=== PATIENT | male | born 1990 | race Caucasian/White ===

== ENCOUNTER 2022-06-26 08:16 | Emergency (ER) | payer OTHER, SELFPAY ==
[2022-06-26 08:34] VITALS: BP 129/89; PULSE 71; RESP 17; TEMP 36.7; O2SAT 99; BMI 28.1
--- NOTE | 2022-06-26 08:41 | ED.SKABFB ---
HPI - Skin/Abscess/Foreign Bdy General Chief complaint: Skin/Abscess/Foreign Body Stated complaint: Poss infection in injured big toe Time Seen by Provider: 06/26/22 08:33 Source: patient Mode of arrival: Family Vehicle Limitations: no limitations History of Present Illness HPI narrative: Patient is a healthy 31-year-old male who presents with right toe pain. He said he pulled a hangnail on his right toe 3 days ago. He now says it is extremely painful and swollen. No fever or chills. It is mildly erythematous. Related Data Home Medications Medication Instructions Recorded Confirmed naproxen 250 mg tablet 250 mg PO BID PRN pain 06/26/22 06/26/22 Previous Rx's Medication Instructions Recorded cephalexin 500 mg capsule 500 mg PO BID 7 days #14 caps 06/26/22 Allergies Allergy/AdvReac Type Severity Reaction Status Date / Time No Known Drug Allergies Allergy Verified 06/26/22 08:37 Review of Systems Review of Systems Narrative: GENERAL: Denies chills,fever HEENT: Denies throat pain RESPIRATORY: Denies dyspnea, cough, wheezing CARDIOVASCULAR: Denies chest pain, palpitations GASTROINTESTINAL: Denies nausea, vomiting MUSCULOSKELETAL: Denies extremity pain, injury SKIN: See HPI NEUROLOGIC: Denies weakness, dizziness, headache, numbness 8 point review of systems is negative except for those stated above and HPI Patient History Social History Smoking Status: Former smoker Smoking Status: Former smoker tobacco type: cigarettes alcohol intake frequency: 0-2 drinks per day Substance Use Type: does not use Exam Initial Vital Signs Initial Vital Signs: Vital Signs Temperature 98.1 F 06/26/22 08:34 Pulse Rate 71 06/26/22 08:34 Respiratory Rate 17 06/26/22 08:34 Blood Pressure 129/89 06/26/22 08:34 Pulse Oximetry 99 06/26/22 08:34 Oxygen Delivery Method 06/26/22 08:34 GENERAL: Well-appearing, well-nourished and in no acute distress. CARDIOVASCULAR: peripheral pulses in tact, cap refill <2 sec RESPIRATORY: No respiratory distress, speaks in full sentences without difficulty EXTREMITIES: Normal range of motion, no clubbing or edema. Neurovascularly intact NEUROLOGICAL: Cranial nerves II through XII grossly intact. Normal gait and speech. SKIN: Right big toe medial site of hangnail removal. Very tender to touch minimal erythema no obvious swelling Course Vital Signs Vital signs: Vital Signs - 8 hr 06/26/ 08:34 Temperature 98.1 F Pulse Rate 71 Respiratory Rate 17 Blood Pressure 129/89 Pulse Oximetry 99 Oxygen Delivery Method Room Air MDM - Skin/Abscess/Foreign Bdy MDM Narrative Medical decision making narrative: The patient till really does not look severely infected it is minimally erythematous localized around the nail. Commended warm soaks however he is extremely tender to touch. This time there is nothing to drain or removed. Discharge Plan Departure Patient Disposition: Home Clinical Impression: Paronychia of great toe of right foot Instructions: Paronychia Activity Restrictions/Additional Instructions: *You have been diagnosed with right big toe paronychia *What to do: This time I recommend a warm soak 10 minutes daily and then be sure to let it dry out. Continue to apply antibiotic ointment 1-2 times daily *Continue to take medications as directed Keflex 500 mg twice a day for 7 days Naproxen 500 mg every 12 hours *Follow up with your primary care provider in 2-3 days or call [phone] *Return to ER if you should have increasing redness pain swelling or any new, worsening or concerning symptoms Prescriptions: New cephalexin 500 mg capsule 500 mg PO BID 7 Days Qty: 14 0RF No Action naproxen [Naprosyn] 250 mg Tablet 250 mg PO BID PRN (Reason: pain) Referrals: ProviderDelvin [Primary Care Provider] - Visit Report Forms: Patient Portal/API
== END 2022-06-26 09:07 | disposition home or self-care (01) ==
PROVIDERS: Emergency Provider Emergency Medicine
DX: L03.031 Cellulitis of right toe (principal)
CPT/HCPCS: 99281

== ENCOUNTER 2022-09-20 15:42 | Emergency (ER) | payer OTHER, SELFPAY ==
[2022-09-20 16:06] VITALS: BP 135/94; PULSE 114; RESP 18; TEMP 37.9; O2SAT 98; BMI 29.0
--- NOTE | 2022-09-20 17:32 | ED_ITS ---
HPI - Fever <CYNDY Casillas - Last Filed: 09/20/22 18:56> General Chief Complaint: Fever Stated Complaint: body aches, headache, s-throat, fever Time Seen by Provider: 09/20/22 16:26 Source: patient Mode of arrival: Ambulatory History of Present Illness HPI Narrative: This is a 31-year-old male who presents to the emergency department after upper respiratory illness symptoms earlier in the week and states that he got better and felt great yesterday when this morning he woke up and felt horrible, states he is had a fever, chills, sore throat, and has had a headache all day. He denies any recent exposures to known sick people. He has been at home with his child who was sick last week upper respiratory infection. Patient states that his child is better and he thought he was better but today he has significant body aches and feels worsen ever. He denies vomiting, diarrhea, weakness. He denies dysuria, urinary frequency or urgency. Related Data Home Medications Medication Instructions Recorded Confirmed naproxen 250 mg tablet 250 mg PO BID PRN pain 06/26/22 06/26/22 Previous Rx's Medication Instructions Recorded cetirizine 10 mg tablet 20 mg PO BEDTIME PRN congestion 09/20/22 #30 tabs fluticasone propionate 50 2 spray intranasal DAILY PRN nasal 09/20/22 mcg/actuation nasal congestion #16 grams spray,suspension ketorolac 10 mg tablet 10 mg PO Q8H PRN pain/muscle 09/20/22 aches/fever #20 tabs pseudoephedrine HCl 120 mg 120 mg PO Q12H PRN nasal 09/20/22 tablet,extended release (Sudafed congestion #14 tabs 12 Hour) Allergies Allergy/AdvReac Type Severity Reaction Status Date / Time No Known Drug Allergies Allergy Verified 06/26/22 08:37 Review of Systems <CYNDY Casillas - Last Filed: 09/20/22 18:56> Review of Systems Narrative: Review of systems is negative for acute abnormalities unless otherwise noted in HPI Patient History <CYNDY Casillas - Last Filed: 09/20/22 18:56> Social History Smoking Status: Former smoker Smoking Status: Former smoker tobacco type: cigarettes alcohol intake frequency: 0-2 drinks per day Substance Use Type: does not use Exam <CYNDY Casillas - Last Filed: 09/20/22 18:56> Narrative Exam Narrative: Reviewed vitals signs and nursing notes. General: cooperative, comfortable, in no acute distress, well groomed, wearing a long sleeve and hooded jacket, febrile, nontoxic appearing HEENT: symmetrical facial expressions, moist mucous membranes, nasal congestion, hoarse voice, Cardiovascular: Tachycardic rate and regular rhythm, S1-S2 without murmur no peripheral edema, warm extremities Respiratory: Normal effort, able to speak in complete sentences, without wheezing, stridor, or abnormal breath sounds. No retractions or tachypnea. Without abnormal breath sounds posteriorlyl GI: abdomen soft, nontender to palpation, nondistended, without masses, rebound tenderness or exquisite tenderness with exam. MSK: moves all extremities, neurovascularly intact, no weakness, normal tone Skin: brisk capillary refill, without pallor or erythema Neuro: normal speech and cognition, A&O x3, ambulatory, clear speech Psych: mental status is grossly normal, congruent mood, normal affect, pleasant and cooperative Initial Vital Signs Initial Vital Signs: Vital Signs Temperature 100.2 F H 09/20/22 16:06 Pulse Rate 114 H 09/20/22 16:06 Respiratory Rate 18 09/20/22 16:06 Blood Pressure 135/94 H 09/20/22 16:06 Pulse Oximetry 98 09/20/22 16:06 Oxygen Delivery Method 09/20/22 16:06 <Corazon Neely MD - Last Filed: 09/21/22 08:19> Initial Vital Signs Initial Vital Signs: Vital Signs Temperature 100.2 F H 09/20/22 16:06 Pulse Rate 114 H 09/20/22 16:06 Respiratory Rate 18 09/20/22 16:06 Blood Pressure 135/94 H 09/20/22 16:06 Pulse Oximetry 98 09/20/22 16:06 Oxygen Delivery Method 09/20/22 16:06 Course <CYNDY Casillas - Last Filed: 09/20/22 18:56> Orders Ordered: Discontinued Medications Acetaminophen (Acetaminophen 325 Mg Tablet) 975 mg PO NOW ONE Stop: 09/20/22 17:09 Last Admin: 09/20/22 18:15 Dose: 975 mg Documented By: KALPESH Ketorolac Tromethamine (Ketorolac 30 Mg/Ml Vial) 15 mg IM NOW ONE Stop: 09/20/22 17:09 Last Admin: 09/20/22 18:15 Dose: 15 mg Documented By: KALPESH Vital Signs Vital signs: Vital Signs - 8 hr 09/20/22 16:06 09/20/22 18:30 Temperature 100.2 F H Pulse Rate 114 H 90 Respiratory Rate 18 18 Blood Pressure 135/94 H 137/96 H Pulse Oximetry 98 99 Oxygen Delivery Method Room Air Room Air <Corazon Neely MD - Last Filed: 09/21/22 08:19> Orders Ordered: Discontinued Medications Acetaminophen (Acetaminophen 325 Mg Tablet) 975 mg PO NOW ONE Stop: 09/20/22 17:09 Last Admin: 09/20/22 18:15 Dose: 975 mg Documented By: KALPESH Ketorolac Tromethamine (Ketorolac 30 Mg/Ml Vial) 15 mg IM NOW ONE Stop: 09/20/22 17:09 Last Admin: 09/20/22 18:15 Dose: 15 mg Documented By: KALPESH Vital Signs Vital signs: Vital Signs - 8 hr 09/20/22 16:06 09/20/22 18:30 Temperature 100.2 F H Pulse Rate 114 H 90 Respiratory Rate 18 18 Blood Pressure 135/94 H 137/96 H Pulse Oximetry 98 99 Oxygen Delivery Method Room Air Room Air MDM - Fever <CYNDY Casillas - Last Filed: 09/20/22 18:56> Lab Data Labs: Lab Results 09/20/22 Range/Units 16:14 SARS-CoV-2 (PCR) Negative (Negative) Influenza A (RT-PCR) Flu a negative (NEGATIVE) Influenza B (RT-PCR) Flu b negative (NEGATIVE) RSV (PCR) Negative (Negative) MDM Narrative Medical decision making narrative: This is a 31-year-old male who presents to the emergency department with onset of fever, sore throat, muscle aches, headache and congestion which started this morning. Patient states that his son had a upper respiratory infection last week but everybody in the home had gotten better, patient states that he felt great yesterday and this morning with like a truck hit him. His COVID, influenza, and RSV PCR was negative for all. Pt was given ibuprofen and Tylenol in the emergency department, encouraged hydration, patient tolerated well and felt much better after his fever broke. He patient's strict return precautions, this is most likely an upper respiratory viral infection, he does have conjunctival injections bilaterally, this looks most like influenza or COVID from my assessment. Encouraged him to retest for COVID tomorrow and the next day at home. He understands to treat his symptoms with [id number] m edications including Zyrtec, ibuprofen, Flonase, Tylenol, and Sudafed as needed for congestion. He does not have any medical history, is a nonsmoker. He was given strict return precautions, is without vomiting, diarrhea, or other symptom. Presentation suggestive of viral syndrome/URI without evidence of hypoxia, respiratory distress, dehydration, or focal exam to suggest secondary bacterial infection. COVID negative. Discussed supportive treatments: Tylenol/Motrin as needed for pain/fever. OTC decongestant medications and/or antihistamines for symptomatic relief. Maintain adequate fluid intake. Follow- up with PCP as directed. Return to clinic/ER instructions discussed for new, not improving, or worsening symptoms. All questions answered. <Corazon Neely MD - Last Filed: 09/21/22 08:19> Lab Data Labs: Lab Results 09/20/22 Range/Units 16:14 SARS-CoV-2 (PCR) Negative (Negative) Influenza A (RT-PCR) Flu a negative (NEGATIVE) Influenza B (RT-PCR) Flu b negative (NEGATIVE) RSV (PCR) Negative (Negative) Discharge Plan Departure Patient Disposition: Home Clinical Impression: Fever of unknown origin, Upper respiratory infection, viral Instructions: DI for Viral Upper Respiratory Infection -- Adult, COVID-19 Activity Restrictions/Additional Instructions: *You have been diagnosed with most likely this is influenza or COVID causing your symptoms, you might not test positive today since day 1 of your symptoms, any enough of a viral load coming out of your nose. You had a fever, an elevated heart rate, muscle aches and all of the signs. Please stay hydrated like it is your job, drink plenty of fluids for the next few days, rest as much as you need it, take the medications that I prescribed to help treat your symptoms, take Tylenol in addition to the ketorolac for fever and pain. I hope that you start feeling better soon, return for any worsening, Patient is appropriate and amenable to discharge home. Vital signs are stable on repeat examination is unremarkable. Patient has been informed of results. Patient has been given strict return to ER precautions for any new or worsening symptoms. Patient understands to follow up closely with outpatient providers as instructed. Patient understands plan and agrees to discharge home. All questions and concerns answered at this time. *What to do: *Please continue to take your regular medications as directed. [x ] New medication prescriptions sent to your pharmacy: [[facility] ] [ ] New medication written as a paper prescription [ ] No new medications given *Please follow up with your primary care provider in 2-3 days, call for an appointment. Let them know you were seen in the Emergency Department and that we asked that you be seen for follow-up. We will electronically transmit a record of today's note if your PCP is in our system *If you do not have a primary care provider please contact [phone] to establish care with one of [facility] primary care providers. *Return to Emergency Department if you should have any new, worsening, or concerning symptoms, such as [fever greater than 101F, chills, worsening pain, persistent vomiting or other bothersome symptoms]. Prescriptions: New ketorolac 10 mg tablet 10 mg PO Q8H PRN (Reason: pain/muscle aches/fever) Qty: 20 0RF cetirizine 10 mg tablet 20 mg PO BEDTIME PRN (Reason: congestion) Qty: 30 0RF pseudoephedrine HCl [Sudafed 12 Hour] 120 mg tablet extended release 120 mg PO Q12H PRN (Reason: nasal congestion) Qty: 14 0RF fluticasone propionate 50 mcg/actuation spray,suspension 2 spray intranasal DAILY PRN (Reason: nasal congestion) Qty: 16 0RF Rx Instructions: administer into each nostril No Action naproxen [Naprosyn] 250 mg Tablet 250 mg PO BID PRN (Reason: pain) Referrals: Provider,Delvin YOO [Primary Care Provider] - Visit Report Forms: Patient Portal/API <Corazon Neely MD - Last Filed: 09/21/22 08:19> Cosign ED Attending Cosignature Attestation: I was immediately available in the department for consultation throughout this patient's visit. I agree with documentation as above. Corazon Neely MD
[2022-09-20 17:53] LABS: Influenza A - CEPHEID Flu A NEGATIVE (NEGATIVE); Influenza B - CEPHEID Flu B NEGATIVE (NEGATIVE); Respiratory Syncytial Virus Negative (Negative)
[2022-09-20 17:56] LABS: COVID-19 CEPHEID 4-PLEX PCR Negative (Negative)
[2022-09-20] MEDS: ACETAMINOPHEN 325 MG TABLET 975 MG PO (18:15)
[2022-09-20] MEDS: KETOROLAC 30 MG/ML VIAL 15 MG IM (18:15)
[2022-09-20 18:30] VITALS: BP 137/96; PULSE 90; RESP 18; O2SAT 99
== END 2022-09-20 18:36 | disposition home or self-care (01) ==
PROVIDERS: Emergency Medicine; Emergency Provider Nurse Practitioner Critical Care Medicine
DX: J06.9 Acute upper respiratory infection, unspecified (principal); R50.9 Fever, unspecified; Z20.822 Contact with and (suspected) exposure to COVID-19
CPT/HCPCS: 0241U; 96372; 99283; J1885

== ENCOUNTER 2023-06-17 06:59 | Emergency (ER) | payer OTHER, SELFPAY ==
[2023-06-17 07:05] VITALS: BP 137/95; PULSE 75; RESP 16; TEMP 36.8; O2SAT 100; BMI 29.2
--- NOTE | 2023-06-17 07:23 | ED_ITS ---
HPI - Eye Problem General Chief complaint: Eye Problems Stated complaint: conjunctivitus in left eye Time Seen by Provider: 06/17/23 07:18 Source: patient Mode of arrival: Ambulatory Limitations: no limitations History of Present Illness HPI Narrative: This is a 32-year-old male with history of Lasix in 2019 with concern for conjunctivitis in the left eye. Patient states he developed irritation a week ago (last Friday), crusting and drainage. He states he was started on polymyxin eyedrops which he did bring with him he has been using them for the past 6 days. Patient states he has been using the eyedrops and has not really had any improvement. He states this morning he woke up his pain was little bit increased. He states no change to vision. He states his eyes have been crusted shut every morning on the left. He states his right eye has not been very involved. Patient states he does have a young child at home which could be a potential source. He has not had issues like this in the past. He does not wear contacts or glasses. Patient denies fevers, no nasal congestion or other symptoms. Patient was seen at an urgent care on [facility] and has not had any improvement. He notes Lasix to his eye no other prior surgeries. Former tobacco user, occasional alcohol, no illicit. Related Data Home Medications Medication Instructions Recorded Confirmed naproxen 250 mg tablet 250 mg PO BID PRN pain 06/26/22 06/26/22 Previous Rx's Medication Instructions Recorded cetirizine 10 mg tablet 20 mg PO BEDTIME PRN congestion 09/20/22 #30 tabs fluticasone propionate 50 2 spray intranasal DAILY PRN nasal 09/20/22 mcg/actuation nasal congestion #16 grams spray,suspension ketorolac 10 mg tablet 10 mg PO Q8H PRN pain/muscle 09/20/22 aches/fever #20 tabs pseudoephedrine HCl 120 mg 120 mg PO Q12H PRN nasal 09/20/22 tablet,extended release (Sudafed congestion #14 tabs 12 Hour) Allergies Allergy/AdvReac Type Severity Reaction Status Date / Time No Known Drug Allergies Allergy Verified 06/26/22 08:37 Review of Systems Review of Systems ROS Unobtainable: All systems reviewed & are unremarkable except as noted in HPI and below Patient History Social History Smoking Status: Former smoker Smoking Status: Former smoker tobacco type: cigarettes alcohol intake frequency: 0-2 drinks per day Substance Use Type: does not use Exam Narrative Exam Narrative: GEN: well nourished, well appearing male, alert and oriented x 3, patient appears to be in mild distress. HEENT: Atraumatic, pupils are equal round reactive to light, extraocular movements are intact, nares are clear, TMs are clear with no fluid, there is no conjunctival pallor. Throat is clear without any exudates, erythema, tonsillar enlargement or uvular deviation Visual acuity: right [20/25], left [20/25] without correction. IOP: Right [default value] mm Hg, Left [default value] mm Hg General: no globe trauma Eyelids: normal inspection on the right, eyelids everted for exam on left, no foreign body, patient has some slight swelling of the upper lids but no significant edema. Mild erythema along the edge of the lid particularly in the upper lid on the left. Conjunctiva/Sclera: normal inspection the right, on the left patient has injection of the conjunctiva particularly the lower lid but upper and lower included some mild injection of the sclera on the left. Corneas: normal inspection, examined with fluroscein on left, patient has punctate uptake throughout the sclera, no uptake over the cornea itself, no abrasions, no lacerations or ulcerations are appreciated.. EOM: intact, no palsy/entrapment Pupils: PERRL, normal accomadation, pupil normal Anterior Chambers: normal inspection, no hypema Posterior: normal fundoscopic on bilaterally HEART: Regular rate and rhythm without murmur, clicks, rubs. LUNGS:Lungs clear to auscultation, no wheezes, rales, crackles, chest moves symmetrically MSCL: full range of motion, normal gait NEURO:CN 2-12 intact, sensation normal SKIN: No rash, erythema or other skin changes other than noted above Initial Vital Signs Initial Vital Signs: Vital Signs Temperature 98.3 F 06/17/23 07:05 Pulse Rate 75 06/17/23 07:05 Respiratory Rate 16 06/17/23 07:05 Blood Pressure 137/95 H 06/17/23 07:05 Pulse Oximetry 100 06/17/23 07:05 Oxygen Delivery Method Room Air 06/17/23 07:05 Course Orders Ordered: Discontinued Medications Fluorescein Sodium (Fluorescein 1 Mg Strip) 1 mg EYE-BOTH NOW ONE Stop: 06/17/23 07:20 Last Admin: 06/17/23 07:45 Dose: 1 mg Documented By: ESTEFANY Ofloxacin (Ofloxacin 0.3% Ophth Prepack) 1 bottle MISC SEEINSTR ONE Stop: 06/17/23 07:37 Last Admin: 06/17/23 08:17 Dose: 2 drops Documented By: ESTEFANY Proparacaine HCl (Proparacaine 0.5% Ophth Shannon) 1 drops EYE-BOTH NOW ONE Stop: 06/17/23 07:20 Last Admin: 06/17/23 07:45 Dose: 1 drop Documented By: ESTEFANY Vital Signs Vital signs: Vital Signs - 8 hr 06/17/23 07:05 Temperature 98.3 F Pulse Rate 75 Respiratory Rate 16 Blood Pressure 137/95 H Pulse Oximetry 100 Oxygen Delivery Method Room Air MDM - Eye Problem MDM Narrative Medical decision making narrative: 32-year-old healthy male with a history of Lasix with new prior issues with infections. Patient was diagnosed with a bacterial conjunctivitis started on polymyxin approximately 6 days ago without any improvement some slight worsening. Patient states no changes to vision the eye is more uncomfortable today. He states persistent crusting throughout has been localized to the left eye. On examination no obvious foreign body, no obvious abrasions or ulcerations are appreciated. Patient has some punctate uptake over the sclera but not over the cornea itself. Patient antibiotic drops were change to ofloxacin and patient referred to see Ophthalmology today or tomorrow at the [facility]. Patient has also been using a homeopathic eyedrops who is main ingredient is benzakalium. Discussed with patient would stop this for the short term there maybe some reactivity with this medication as well to see if that improves. If he needed to he can use some saline drops [id number]. Discharge Plan Departure Patient Disposition: Home Clinical Impression: Conjunctivitis Instructions: DI for Conjunctivitis Activity Restrictions/Additional Instructions: Follow-up with ophthalmology in the next 24 hours. Call their office 1st thing this morning to set up an appointment. Stop using polymyxin antibiotic drops. You may use ofloxacin 2 drops to the left eye every 6 hours. You may continue to use cool washcloth to the affected side throughout the day. You can take a 1000 mg of Tylenol and/or 600 mg of ibuprofen every 6 hours as needed for pain. Please return for sudden changes in vision, rapidly worsening swelling redness or drainage, increasing pain, vomiting, fevers or other new or concerning changes. Prescriptions: No Action naproxen [Naprosyn] 250 mg Tablet 250 mg PO BID PRN (Reason: pain) ketorolac 10 mg tablet 10 mg PO Q8H PRN (Reason: pain/muscle aches/fever) Qty: 20 0RF cetirizine 10 mg tablet 20 mg PO BEDTIME PRN (Reason: congestion) Qty: 30 0RF pseudoephedrine HCl [Sudafed 12 Hour] 120 mg tablet extended release 120 mg PO Q12H PRN (Reason: nasal congestion) Qty: 14 0RF fluticasone propionate 50 mcg/actuation spray,suspension 2 spray intranasal DAILY PRN (Reason: nasal congestion) Qty: 16 0RF Rx Instructions: administer into each nostril Referrals: Fransisco Celis MD [Physician] - Provider,Delvin YOO [Primary Care Provider] - Stand Alone Forms: Patient Portal/API, Work Release Note
[2023-06-17] MEDS: FLUORESCEIN 1 MG STRIP EYE-BOTH (07:45)
[2023-06-17] MEDS: PROPARACAINE 0.5% OPHTH SOL 1 DROPS EYE-BOTH (07:45)
[2023-06-17] MEDS: OFLOXACIN 0.3% OPHTH PREPACK 1 BOTTLE MISC (08:17)
== END 2023-06-17 08:24 | disposition home or self-care (01) ==
PROVIDERS: Emergency Provider Emergency Medicine
DX: H10.9 Unspecified conjunctivitis (principal)
CPT/HCPCS: 99282; 99283

== ENCOUNTER 2023-06-29 19:31 | Emergency (ER) | payer OTHER, SELFPAY ==
--- NOTE | 2023-06-29 19:37 | ED.GENADULT ---
HPI - General Adult General Chief complaint: Extremity Injury, Lower Stated complaint: Left great toe injury Time Seen by Provider: 06/29/23 19:36 History of Present Illness HPI narrative: 32-year-old male former smoker with noncontributory medical history presents with a chief complaint of an injury to his left great toe earlier today. He was moving a heavy post and dropped it on his foot with primary point of impact being his great toe. He has a small amount of bleeding coming from underneath the nail. He has significant aching pain while at rest and sharp pain when ambulating. He denies other injury and is otherwise well and free of complaint. His tetanus is up-to-date. Related Data Home Medications Medication Instructions Recorded Confirmed naproxen 250 mg tablet 250 mg PO BID PRN pain 06/26/22 06/26/22 Previous Rx's Medication Instructions Recorded cetirizine 10 mg tablet 20 mg PO BEDTIME PRN congestion 09/20/22 #30 tabs fluticasone propionate 50 2 spray intranasal DAILY PRN nasal 09/20/22 mcg/actuation nasal congestion #16 grams spray,suspension ketorolac 10 mg tablet 10 mg PO Q8H PRN pain/muscle 09/20/22 aches/fever #20 tabs pseudoephedrine HCl 120 mg 120 mg PO Q12H PRN nasal 09/20/22 tablet,extended release (Sudafed congestion #14 tabs 12 Hour) Allergies Allergy/AdvReac Type Severity Reaction Status Date / Time No Known Drug Allergies Allergy Verified 06/26/22 08:37 Review of Systems Review of Systems Narrative: GENERAL: Denies chills, fatigue, malaise, fever, sweats. HEENT: Denies sinus pain, ear pain, sore throat, difficulty swallowing, dizziness. RESPIRATORY: Denies dyspnea, cough, wheezing, hemoptysis, sputum. CARDIOVASCULAR: Denies chest pain, palpitations, orthopnea, edema, GASTROINTESTINAL: Denies nausea, vomiting, abdominal pain, diarrhea, constipation, melena. : Denies dysuria, frequency, incontinence, hematuria, urinary retention. MUSCULOSKELETAL: See HPI SKIN: Denies rash, skin lesions, or other NEUROLOGIC: Denies weakness, headache, numbness, change in speech, confusion, seizures, incoordination. PSYCHIATRIC: No concerning psychosocial issues. 12 point review of systems is negative except for those stated above Patient History Social History Smoking Status: Former smoker Smoking Status: Former smoker tobacco type: cigarettes alcohol intake frequency: 0-2 drinks per day Substance Use Type: does not use Exam Narrative Exam Narrative: GEN: AOx3 and in mild distress EYES: Pupils are equal, round, and reactive to light and accommodation. Extraoccular muscles are intact bilaterally. There is no subconjunctival hemorrhage or exudate. CHEST: Lungs are clear to auscultation bilaterally and free of wheezes, rales, or rhonchi. Heart rate is regular rhythm, there are no murmurs, clicks, rubs, or gallops. There is no chest wall tenderness. ABD: Abdomen is soft and nontender. There is no guarding or rebound. Bowel sounds are normal in all 4 quadrants. There is no mass or organomegaly. EXT: Decreased range of motion of left great toe secondary to pain, nail and nail fold are intact, small amount of bleeding coming from the medial edge of the nail suggesting a small nail bed injury. This is otherwise closed, isolated and neurovascularly intact. SKIN: Warm, pink, and dry. No erythema or rash Initial Vital Signs Initial Vital Signs: Vital Signs Temperature 97.5 F L 06/29/23 19:46 Pulse Rate 88 06/29/23 19:46 Respiratory Rate 16 06/29/23 19:46 Blood Pressure 149/84 H 06/29/23 19:46 Pulse Oximetry 99 06/29/23 19:46 Oxygen Delivery Method Room Air 06/29/23 19:46 Course Orders Ordered: ED Orders 06/29/23 19:53 XR foot LT min 3V Stat Discontinued Medications Hydrocodone Bitart/Acetaminophen (Hydrocodone/Acet 5/325 Prepack) 1 bottle MISC SEEINSTR ONE Stop: 06/29/23 19:58 Last Admin: 06/29/23 20:13 Dose: 1 bottle Documented By: BS Vital Signs Vital signs: Vital Signs - 8 hr 06/29/23 20:43 Pulse Rate 88 Respiratory Rate 16 Blood Pressure 135/80 Pulse Oximetry 99 Oxygen Delivery Method Room Air Medical Decision Making [facility] Narrative Medical decision making narrative: [32] year old patient presents with crush injury to left great toe Multiple etiologies for patient's symptoms considered including, but not limited to: Fracture versus dislocation versus ligamentous injury versus nail bed injury versus other [] Prior Charts reviewed in our EMR Primary Historian: patient Imaging reviewed: Left foot x-ray demonstrates no fracture or dislocation History and physical exam are reassuring, this is closed, isolated and neurovascularly intact, there is minimal bleeding from the nail bed, no evidence of subungual hematoma, no evidence of open fracture. Patient's symptoms improved over duration of stay with above-stated therapies. Findings and discharge diagnosis discussed with patient/family followed by verbalization of understanding Return precautions discussed with patient/family whom verbalize understanding of diagnosis and plan Discharge Plan Departure Patient Disposition: Home Clinical Impression: Crushing injury of great toe Instructions: Toe Fracture Activity Restrictions/Additional Instructions: *You have been diagnosed with [crush injury of left great toe with minor nail bed injury. As we discussed the x-rays are negative for fracture or dislocation. I gave you printed information on toe fracture just for completeness sake, just to be clear there is no evidence that your toe is actually fractured.] *What to do: *Please continue to take your regular medications as directed. [ ] New medication prescriptions sent to your pharmacy: [ ] [ ] New medication written as a paper prescription [ ] No new medications given *Please follow up with your primary care provider in 2-3 days, call for an appointment. Let them know you were seen in the Emergency Department and that we ask that you be seen in follow up. We will electronically transmit a record of today's note if your PCP is in our system *Return to Emergency Department if you should have any new, worsening or concerning symptoms, such as [fever greater than 101 F, shaking chills, worsening pain, persistent vomiting or other bothersome symptoms] Prescriptions: No Action naproxen [Naprosyn] 250 mg Tablet 250 mg PO BID PRN (Reason: pain) ketorolac 10 mg tablet 10 mg PO Q8H PRN (Reason: pain/muscle aches/fever) Qty: 20 0RF cetirizine 10 mg tablet 20 mg PO BEDTIME PRN (Reason: congestion) Qty: 30 0RF pseudoephedrine HCl [Sudafed 12 Hour] 120 mg tablet extended release 120 mg PO Q12H PRN (Reason: nasal congestion) Qty: 14 0RF fluticasone propionate 50 mcg/actuation spray,suspension 2 spray intranasal DAILY PRN (Reason: nasal congestion) Qty: 16 0RF Rx Instructions: administer into each nostril Referrals: ProviderDelvin FREDO [Primary Care Provider] - Stand Alone Forms: Patient Portal/API
[2023-06-29 19:46] VITALS: BP 149/84; PULSE 88; RESP 16; TEMP 36.4; O2SAT 99; BMI 28.7
--- NOTE | 2023-06-29 19:53 | DI.RAD.S_ITS ---
PROCEDURE: XR FOOT LT MIN 3V INDICATIONS: Crush injury to RT great toe TECHNIQUE: 3 views of the foot were acquired. COMPARISON: None. FINDINGS: Bones: No acute fractures or dislocations. A nonaggressive lucent lesion is seen within body of the calcaneus, most likely a benign bone cyst or intraosseous lipoma. Soft tissues: No suspicious soft tissue calcification. IMPRESSION: No acute osseous abnormality. If clinical suspicion and/or symptoms persist, additional imaging with repeat plain films, or advanced imaging (e.g. CT, MRI) may be helpful for further assessment. Approved by: Darshan Barrientos M.D. on 06/29/2023 at 20:23
[2023-06-29] MEDS: HYDROCODONE/ACET 5/325 PREPACK 1 BOTTLE MISC (20:13)
[2023-06-29 20:43] VITALS: BP 135/80; PULSE 88; RESP 16; O2SAT 99
== END 2023-06-29 20:44 | disposition home or self-care (01) ==
PROVIDERS: Emergency Provider Emergency Medicine
DX: S97.112A Crushing injury of left great toe, initial encounter (principal); W22.8XXA Striking against or struck by other objects, initial encounter
CPT/HCPCS: 73630; 99283

== ENCOUNTER 2023-12-07 11:57 | Emergency (ER) | payer OTHER, SELFPAY ==
[2023-12-07] VITALS (29 sets, daily range): BP systolic 102–128; BP diastolic 56–84; PULSE 47–81; RESP 9–29; O2SAT 97–100
--- NOTE | 2023-12-07 12:00 | DI.RAD.S_ITS ---
PROCEDURE: XR CHEST 1V INDICATIONS: Short of breath and L sided chest pain TECHNIQUE: One view of the chest was acquired. COMPARISON: [facility], CT, CT CHEST WO [facility], 12/07/2023, 12:13. FINDINGS: Surgical changes and devices: None. Lungs and pleura: An incomplete inspiratory result is noted, causing a crowded appearance to the lung markings. No focal infiltrates are seen. No pneumothorax or significant pleural effusions are seen. Mediastinum: Mediastinal contours appear normal. Heart size is normal. Bones and chest wall: No suspicious bony lesions. The known left-sided rib fractures are not seen on this plain film study. Overlying soft tissues appear unremarkable. IMPRESSION: Low lung volumes, without an acute abnormality seen by plain film. The known left-sided rib fractures that can be seen on the accompanying CT study are not seen by plain film study. Dictated by: Pablo Corona M.D. on 12/07/2023 at 11:42 Approved by: Pablo Corona M.D. on 12/07/2023 at 11:42
--- NOTE | 2023-12-07 12:02 | ED_ITS ---
HPI - General Adult General Chief complaint: Trauma Stated complaint: Mod Trauma Time Seen by Provider: 12/07/23 12:00 Source: patient and EMS Mode of arrival: EMS Limitations: no limitations History of Present Illness HPI narrative: Patient is a 33-year-old male who is brought in by EMS not on a backboard not in a cervical collar for injuries that he sustained when he fell while working in his garage. He states he fell approximately 3 ft. He did land on his left side. Has fairly significant left-sided chest wall discomfort. He states he can feel things moving around when he takes a deep breath. No extremity injuries. Did not hit his head. No neck pain. Not on blood thinners. No pelvic pain. Initial reports by EMS was that the patient was hypotensive with a systolic blood pressure in the 80s and was bradycardic with a heart rate in the 50s Related Data Previous Rx's Medication Instructions Recorded hydrocodone 5 mg-acetaminophen 325 1 tab PO Q4-6H PRN pain #20 tabs 12/07/23 mg tablet Allergies Allergy/AdvReac Type Severity Reaction Status Date / Time No Known Drug Allergies Allergy Verified 06/26/22 08:37 Review of Systems Review of Systems ROS Unobtainable: All systems reviewed & are unremarkable except as noted in HPI and below Patient History Social History Smoking Status: Former smoker Smoking Status: Former smoker tobacco type: cigarettes alcohol intake frequency: 0-2 drinks per day Substance Use Type: does not use Exam Initial Vital Signs Initial Vital Signs: Vital Signs Pulse Rate 56 L 12/07/23 11:58 Respiratory Rate 14 12/07/23 11:58 Blood Pressure 103/68 12/07/23 11:58 Pulse Oximetry 100 12/07/23 11:58 Const General: cooperative, comfortable and No ill appearing HENMT Head: normal to inspection and normocephalic Chest Chest: No crepitus and tenderness (Left-sided lateral posterior chest) Resp Effort & Inspection: normal respiratory effort Auscultation: clear to auscultation bilaterally Cardio Rate: regular rate Rhythm: regular rhythm GI Inspection: normal to inspection and non-distended Back/Spine/Pelvis Cervical Spine: No cervical spinal tenderness Thoracic/Lumbar Spine: No thoracic spinal tenderness and No lumbar spinal tenderness Skin General: no rashes or lesions noted Neuro General: patient alert, patient awake, patient oriented x3 and moves all extremities Speech: speech normal Extrem General: normal to inspection and capillary refill normal Procedures FAST Exam FAST Exam 1: Fluid in Morison's pouch: No Fluid in Splenorenal Junction: No Fluid around bladder, Transverse view: No Fluid around bladder, Sagittal view: No Fluid in Pericardial Sac: No Gross Wall Motion Abnormality: No Study normal for this patient: Yes Images saved for further review: No Additional Comments: Clear lung sliding bilateral thorax Scores GCS [place] coma scale eye opening: Spontaneous [place] coma scale verbal response: Orientated [place] coma scale motor response: Obey commands [place] coma scale total score: 15 Nexus Score for C-Spine Focal Neurologic deficit present: No Midline spinal tenderness present: No Altered level of conciousness present: No Intoxication present: No Distracting Injury Present: No Nexus Criteria for C-spine: 0 Course Orders Ordered: ED Orders 12/07/23 12:00 XR chest 1V Stat Complete Blood Count AUTO DIFF Stat Comprehensive Metabolic Panel Stat Lipase Stat Troponin & CK Cardiac Panel Stat 12/07/23 12:03 CT chest wo con Stat 12/07/23 12:04 EKG-12 Lead Stat Discontinued Medications Hydrocodone Bitart/Acetaminophen (Hydrocodone/Acet 5/325 Tablet) 1 tab PO NOW ONE Stop: 12/07/23 13:00 Last Admin: 12/07/23 13:32 Dose: 1 tab Documented By: CTS Hydromorphone HCl (Hydromorphone 0.5 Mg Inj) 0.5 mg IV NOW ONE Stop: 12/07/23 12:22 Last Admin: 12/07/23 12:26 Dose: 0.5 mg Documented By: MENG Ketorolac Tromethamine (Ketorolac 30 Mg/Ml Vial) 30 mg IV NOW ONE Stop: 12/07/23 13:00 Last Admin: 12/07/23 13:31 Dose: 30 mg Documented By: CTS Vital Signs Vital signs: Vital Signs - 8 hr 12/07/23 11:58 12/07/23 11:59 12/07/23 12:02 Pulse Rate 56 L 59 L Respiratory Rate 14 20 Blood Pressure 103/68 102/70 Pulse Oximetry 100 100 Oxygen Delivery Method Room Air Room Air 12/07/23 12:11 12/07/23 12:12 12/07/23 12:12 Pulse Rate 55 L 54 L Respiratory Rate 16 Blood Pressure 104/73 Pulse Oximetry 100 Oxygen Delivery Method 12/07/23 12:15 12/07/23 12:20 12/07/23 12:20 Pulse Rate 47 L 54 L Respiratory Rate 9 L 24 Blood Pressure 112/78 Pulse Oximetry 100 100 Oxygen Delivery Method Room Air 12/07/23 12:25 12/07/23 12:30 12/07/23 12:30 Pulse Rate 58 L 55 L Respiratory Rate 29 H 14 Blood Pressure 104/68 Pulse Oximetry 100 100 Oxygen Delivery Method 12/07/23 12:35 12/07/23 12:40 12/07/23 12:40 Pulse Rate 59 L 50 L Respiratory Rate 13 17 Blood Pressure 104/67 Pulse Oximetry 100 100 Oxygen Delivery Method 12/07/23 12:45 12/07/23 12:50 12/07/23 12:50 Pulse Rate 51 L 54 L Respiratory Rate 15 19 Blood Pressure 102/69 Pulse Oximetry 100 100 Oxygen Delivery Method Room Air 12/07/23 12:55 12/07/23 13:00 12/07/23 13:05 Pulse Rate 53 L 57 L 61 Respiratory Rate 19 21 17 Blood Pressure Pulse Oximetry 100 99 97 Oxygen Delivery Method 12/07/23 13:10 12/07/23 13:10 12/07/23 13:15 Pulse Rate 58 L 57 L Respiratory Rate 15 14 Blood Pressure 116/67 Pulse Oximetry 100 100 Oxygen Delivery Method Room Air 12/07/23 13:20 12/07/23 13:20 12/07/23 13:25 Pulse Rate 61 69 Respiratory Rate 19 14 Blood Pressure 113/66 Pulse Oximetry 100 100 Oxygen Delivery Method 12/07/23 13:30 12/07/23 13:30 12/07/23 13:35 Pulse Rate 66 65 Respiratory Rate 25 H 18 Blood Pressure 110/69 Pulse Oximetry 100 100 Oxygen Delivery Method 12/07/23 13:40 12/07/23 13:40 12/07/23 13:45 Pulse Rate 62 69 Respiratory Rate 14 13 Blood Pressure 116/76 Pulse Oximetry 100 100 Oxygen Delivery Method 12/07/23 13:50 12/07/23 13:50 12/07/23 14:00 Pulse Rate 69 62 Respiratory Rate 14 12 Blood Pressure 125/84 Pulse Oximetry 100 100 Oxygen Delivery Method 12/07/23 14:00 12/07/23 14:10 12/07/23 14:10 Pulse Rate 76 Respiratory Rate 14 Blood Pressure 128/75 121/71 Pulse Oximetry 100 Oxygen Delivery Method 12/07/23 14:15 12/07/23 14:20 12/07/23 14:20 Pulse Rate 72 77 Respiratory Rate 15 18 Blood Pressure 126/56 L Pulse Oximetry 100 100 Oxygen Delivery Method 12/07/23 14:30 12/07/23 14:30 Pulse Rate 81 Respiratory Rate 21 Blood Pressure 126/69 Pulse Oximetry 99 Oxygen Delivery Method Medical Decision Making Lab Data Lab results reviewed: Yes I reviewed the patient's lab results. 12/07/23 12:00 12/07/23 12:00 Labs: Lab Results 12/07/23 Range/Units 12:00 WBC 6.5 (4.5-11.0) X10^3/uL RBC 4.89 (4.5-5.9) X10^6/uL Hgb 14.6 (13.5-17.5) g/dL Hct 41.9 (41-53) % MCV 85.7 (80-100) fL MCH 29.8 (26-34) PG MCHC 34.8 (30-36) % RDW 13.5 (11.6-14.8) % Plt Count 226 (150-400) X10^3/uL Neut % (Auto) 56.6 (50-75) % Lymph % (Auto) 30.2 (25-40) % Green % (Auto) 8.1 (3-14) % Eos % (Auto) 4.6 H (2-4) % Baso % (Auto) 0.5 (0-2) % Neut # (Auto) 3700 (6277-5777) /uL Lymph # (Auto) 2000 (2734-0235) /uL Green # (Auto) 500 (0-900) /uL Eos # (Auto) 300 (0-450) /uL Baso # (Auto) 0 (0-100) /uL Sodium 138 (137-145) mmol/L Potassium 4.0 (3.4-5.1) mmol/L Chloride 105 (98-107) mmol/L Carbon Dioxide 27 (22-32) mmol/L BUN 14 (9-20) mg/dL Creatinine 0.91 (0.66-1.25) mg/dL Estimated GFR > 60 (>60) mL/min BUN/Creatinine Ratio 15.4 (6-22) Glucose 97 (70-100) mg/dL Calcium 9.4 (8.4-10.2) mg/dL Total Bilirubin 0.7 (0.2-1.3) mg/dL AST 31 (17-59) IU/L ALT 33 (<50) IU/L Alkaline Phosphatase 46 (38-126) U/L Total Creatine Kinase 60 (55-170) U/L Troponin I < 0.012 (0.01-0.034) ng/mL Total Protein 7.1 (6.3-8.2) g/dL Albumin 3.9 (3.5-5.0) g/dL Globulin 3.2 (1.7-4.1) g/dL Albumin/Globulin Ratio 1.2 (1.0-2.8) Lipase 93 (23-300) U/L Imaging Data CT scan - chest: Radiologist's Impression: PROCEDURE: CT CHEST WO CON INDICATIONS: trauma L sided chest pain TECHNIQUE: Noncontrast 5 mm thick sections acquired from the pulmonary apices to the posterior costophrenic angles. 1 mm lung window, 5 mm thick coronal and sagittal and 7 mm axial MIP reformats were then acquired. For radiation dose reduction, the following was used: automated exposure control, adjustment of mA and/or kV according to patient size. COMPARISON: [facility], CR, XR CHEST 1 VIEW, 01/28/2020, 22:48. FINDINGS: Image quality: Diagnostic. Lower Neck: No enlarged lymph nodes. Thyroid: No thyroid nodules which require sonographic follow up, per consensus guidelines. Axillae: No enlarged lymph nodes. Chest Wall: Unremarkable. Bones: Mildly displaced rib fractures can be seen on the left posterior laterally involving the 8th, 9th, and 10th ribs. No displaced thoracic fracture is seen. Lungs and Pleura: No pneumothorax or pleural effusions. No consolidation or suspicious nodules. Heart: Heart size is normal. No pericardial effusion. Thoracic Vessels: The aorta and pulmonary arteries demonstrate normal size. Mediastinum and Shy: No enlarged lymph nodes. Esophagus: No wall thickening. No hiatal hernia. Upper Abdomen: Visualized upper abdomen solid organs and bowel loops appear normal. IMPRESSION: Left-sided rib fractures are seen posteriorly and laterally, involving the 8th, 9th, and 10th ribs. No associated pneumothorax can be seen. Chest x-ray: Radiologist's Impression: PROCEDURE: XR CHEST 1V INDICATIONS: Short of breath and L sided chest pain TECHNIQUE: One view of the chest was acquired. COMPARISON: [facility], CT, CT CHEST WO CON, 12/07/2023, 12:13. FINDINGS: Surgical changes and devices: None. Lungs and pleura: An incomplete inspiratory result is noted, causing a crowded appearance to the lung markings. No focal infiltrates are seen. No pneumothorax or significant pleural effusions are seen. Mediastinum: Mediastinal contours appear normal. Heart size is normal. Bones and chest wall: No suspicious bony lesions. The known left-sided rib fractures are not seen on this plain film study. Overlying soft tissues appear unremarkable. IMPRESSION: Low lung volumes, without an acute abnormality seen by plain film. The known left-sided rib fractures that can be seen on the accompanying CT study are not seen by plain film study. ECG Data Attestation: I personally reviewed and interpreted this ECG as follows: Interpretation: Sinus bradycardia Ventricular rate of 49 Normal axis Normal QRS Normal QTC No ST T wave changes MDM Narrative Medical decision making narrative: No respiratory distress. CT scan of the chest does show multiple left-sided rib fractures. No pneumothorax. Patient is not hypoxic. He was given incentive spirometer. He stated that his symptoms were actually better after Toradol and pain medication. No other injuries from the event. No abdominal tenderness. Fast scan negative. Did not hit his head. Not on blood thinners. Cervical spine cleared by nexus criteria. Will discharge patient home with pain control. He was given return precautions and follow-up instructions. He expressed understanding and agreement. Critical Care Time Critical Care Time Critical Care Time: Yes Total Critical Care Time: 35 Attestation: The high probability of a clinically significant, sudden or life threatening deterioration of the [cardiovascular, respiratory] system(s) required my full and direct attention, intervention and personal management. The aggregate critical care time was [35] minutes. This time is in addition to time spent performing reported procedures but includes the following: [x] Data Review and interpretation [x] Patient assessment and monitoring of vital signs [x] Documentation [x] Medication orders and management Discharge Plan Departure Patient Disposition: Home Clinical Impression: Multiple fractures of ribs of left side Instructions: DI for Rib Fracture Activity Restrictions/Additional Instructions: It is important that you occasionally take deep breaths. Use the incentive spirometer as directed. The pain medication is for your uses well although it may not take the discomfort completely away. Return to the emergency department for worsening pain, fevers or shortness of breath. It is important that you contact your medical department for a follow-up to discuss work-related restrictions. Prescriptions: New hydrocodone-acetaminophen 5-325 mg tablet 1 tab PO Q4-6H PRN (Reason: pain) Qty: 20 0RF Referrals: ProviderDelvin [Primary Care Provider] - Stand Alone Forms: Patient Portal/API, Work Release Note
--- NOTE | 2023-12-07 12:15 | PC.NURSE ---
Pt is aaox3, healthy 33yo M without pertinent medical history. Reports 50's is baseline HR. c/o L thoracic to L midaxillary back/rib pain. cap refill within normal limits. clear breath sounds however slightly diminished due to pain and inability to take a deep breath. Concern for rib fractures/contusion. educated on splinting maneuvers. NS bolus by EMS infusing. 100mcg fentanyl given by EMS in field. States pain is returning. Dr Ellison aware and awaiting new orders. Taken to and from CT without issue. 18G RAC patent. Labs drawn. remains on cardiac monitoring. SPO2 100% RA. Log roll and CSpine cleared by Dr Ellison at bedside.
[2023-12-07 12:17] LABS: Add Manual Diff / Slide Review NO; Basophils Absolute Auto 0 /uL (0-100); Basophils Percent Auto 0.5 % (0-2); Eosinophils Absolute Auto 300 /uL (0-450); Eosinophils Percent Auto 4.6 % (2-4); Hematocrit 41.9 % (41-53); Hemoglobin 14.6 g/dL (13.5-17.5); Lymphocytes Absolute Auto 2000 /uL (1100-4500); Lymphocytes Percent Auto 30.2 % (25-40); Mean Corpuscular HGB Conc 34.8 % (30-36); Mean Corpuscular Hemoglobin 29.8 PG (26-34); Mean Corpuscular Volume 85.7 fL (80-100); Monocytes Absolute Auto 500 /uL (0-900); Monocytes Percent Auto 8.1 % (3-14); Neutrophils Absolute Auto 3700 /uL (1500-7000); Neutrophils Percent Auto 56.6 % (50-75); Platelet Count 226 X10^3/uL (150-400); Red Blood Cell Count 4.89 X10^6/uL (4.5-5.9); Red Cell Distribution Width 13.5 % (11.6-14.8); White Blood Cell Count 6.5 X10^3/uL (4.5-11.0)
[2023-12-07 12:25] LABS: Creatine Kinase 60 U/L (55-170)
[2023-12-07] MEDS: HYDROMORPHONE 0.5 MG INJ IV (12:26)
[2023-12-07 12:27] LABS: Alanine Aminotransferase 33 IU/L (<50); Albumin 3.9 g/dL (3.5-5.0); Albumin Globulin Ratio 1.2 (1.0-2.8); Alkaline Phosphatase 46 U/L (38-126); Aspartate Aminotransferase 31 IU/L (17-59); BUN Creatinine Ratio 15.4 (6-22); Bilirubin Total 0.7 mg/dL (0.2-1.3); Blood Urea Nitrogen 14 mg/dL (9-20); Calcium 9.4 mg/dL (8.4-10.2); Carbon Dioxide 27 mmol/L (22-32); Chloride 105 mmol/L (98-107); Estimated Glomerular Filt Rate > 60 mL/min (>60); Globulin 3.2 g/dL (1.7-4.1); Glucose 97 mg/dL (70-100); HEMOLYSIS 33 (0-50); Lipase 93 U/L (23-300); Sodium 138 mmol/L (137-145); Total Protein 7.1 g/dL (6.3-8.2)
[2023-12-07 12:38] LABS: Troponin I < 0.012 ng/mL (0.01-0.034)
[2023-12-07] MEDS: KETOROLAC 30 MG/ML VIAL IV (13:31)
[2023-12-07] MEDS: HYDROCODONE/ACET 5/325 TABLET 1 TAB PO (13:32)
--- NOTE | 2023-12-07 14:05 | PC.NURSE ---
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 Once pt started walking pt stated the pain resolved. The same for when the pt went from standing to sitting.
--- NOTE | 2023-12-07 14:43 | PC.NURSE ---
Incentive spirometry training performed. pt demonstrated and verbalized understanding. DC instructions given. IV removed and pt ambulated out of ED with steady gait. picking pt up.
== END 2023-12-07 14:45 | disposition home or self-care (01) ==
PROVIDERS: Emergency Provider Emergency Medicine
DX: S22.42XA Multiple fractures of ribs, left side, initial encounter for closed fracture (principal); R00.1 Bradycardia, unspecified; R06.02 Shortness of breath; W17.89XA Other fall from one level to another, initial encounter
CPT/HCPCS: 71045; 71250; 80053; 82550; 83690; 84484; 85025; 93005; 96374; 96375; 99285; 99291; 99292; G0390; J1170; J1885